=== PATIENT | male | born 1975 ===

== ENCOUNTER 2021-01-13 10:45 | Emergency (ER) | payer OTHER ==
[~2021-01-13] VITALS: Ht 172.7 cm; Wt 125.0 kg
[2021-01-13 10:51] VITALS: BP 137/99; TEMP 98
[2021-01-13 12:00] VITALS: PULSE 83
== END 2021-01-13 12:00 | disposition home or self-care (01) ==
LOC: COL.ER 10:45
DX: S61.211A Laceration without foreign body of left index finger without damage to nail, initial encounter (principal); W26.0XXA Contact with knife, initial encounter

== ENCOUNTER → 2021-01-23 | Outpatient (CLI) | payer OTHER ==
[2021-01-23 08:23] VITALS: BP 129/75; PULSE 76; TEMP 97.9
== END ==
LOC: COL.ER 08:20
DX: Z48.02 Encounter for removal of sutures (principal)